=== PATIENT | male | born 1995 | race Caucasian/White ===

== ENCOUNTER 2016-08-31 21:13 | Emergency (ER) | payer OTHER ==
[~2016-08-31] VITALS: Ht 170.2 cm; Wt 68.0 kg
[~2016-08-31 21:13] MED LIST: ABIL10TA PO; ADDE15CA PO; HYDRO50TAB PO; NICOTINE PATCH TD; TRAZ50TA2 PO; ZOLO50TA PO
[2016-08-31] MEDS ORDERED: CLIN1CAP5 PO (22:09)
[2016-08-31] MEDS ORDERED: CLINDAMYCIN 150 MG CAP PO ONE (22:15)
[2016-08-31 22:17] VITALS: BP 146/60
== END 2016-08-31 22:21 | disposition home or self-care (01) ==
LOC: M ED 21:59
DX: K05.6 Periodontal disease, unspecified (principal); K08.9 Disorder of teeth and supporting structures, unspecified; F17.200 Nicotine dependence, unspecified, uncomplicated

== ENCOUNTER → 2016-11-19 | Outpatient (REF) | payer OTHER ==
[~2016-11-19] MED LIST changes: +AMOX500C PO; +CLIN150C14 PO; +DEPA500T2 PO; +IBUP-1022 PO; +SERO1TAB PO; +TYLE500T78 PO
[2016-11-19 19:04] LABS: ALBUMIN 4.2 GM/DL (3.2-5.2); ALBUMIN/GLOBULIN RATIO 1.45 (1.00-1.93); BILIRUBIN,DIRECT 0.1 MG/DL (0.0-0.2); BILIRUBIN,TOTAL 0.4 MG/DL (0.2-1.0); TOTAL PROTEIN 7.1 GM/DL (6.4-8.2)
== END ==
LOC: M LAB REF 09:35
PROVIDERS: ATTEND Psychiatry & Neurology Psychiatry
DX: Z51.81 Encounter for therapeutic drug level monitoring (principal); Z79.899 Other long term (current) drug therapy

== ENCOUNTER 2016-12-13 13:56 | Emergency (ER) | payer MEDICAID, OTHER, SELFPAY ==
[~2016-12-13] VITALS: Ht 177.8 cm; Wt 70.5 kg
[~2016-12-13 13:56] MED LIST changes: -AMOX500C PO; -DEPA500T2 PO; -IBUP-1022 PO; -SERO1TAB PO; -TYLE500T78 PO
[2016-12-13] MEDS ORDERED: DEPA500T2 PO ×3 (14:05→15:29)
[2016-12-13 15:38] VITALS: BP 120/78
== END 2016-12-13 15:39 | disposition home or self-care (01) ==
LOC: M ED 13:56
DX: Z96.0 Presence of urogenital implants (principal); K50.90 Crohn's disease, unspecified, without complications; F17.210 Nicotine dependence, cigarettes, uncomplicated; Z79.899 Other long term (current) drug therapy

== ENCOUNTER → 2016-12-19 | Outpatient (CLI) | payer MEDICAID, SELFPAY ==
[~2016-12-19] MED LIST changes: +AMOX500C PO; +DEPA500T2 PO; +IBUP-1022 PO; +SERO1TAB PO; +TYLE500T78 PO
== END ==
LOC: M OUTALCOH 12:26
PROVIDERS: ATTEND Psychiatry & Neurology Psychiatry
DX: F10.20 Alcohol dependence, uncomplicated (principal); F11.20 Opioid dependence, uncomplicated

== ENCOUNTER 2017-01-03 16:49 | Emergency (ER) | payer MEDICAID ==
[~2017-01-03] VITALS: Ht 177.8 cm; Wt 70.5 kg
[~2017-01-03 16:49] MED LIST changes: -AMOX500C PO; -IBUP-1022 PO; -SERO1TAB PO; -TYLE500T78 PO
[2017-01-03] MEDS ORDERED: SERO1TAB PO (17:11)
[2017-01-03] MEDS ORDERED: TYLE500T78 PO (17:12)
--- NOTE | 2017-01-03 17:55 | REP ---
Mandible series: Four views. History: Trauma to the chin. Findings: Four views of the mandible are presented. One of the frontal views is suspicious for a supracondylar fracture on the right with slight angulation. There is some asymmetry on oblique lateral views in the right subcondylar and condylar region. No mandibular body or omental fracture is seen. No evidence of malocclusion noted. No bony destructive lesion seen. Impression: Questionable condylar neck fracture on the right. Consider maxillofacial and mandibular CT study. Signed by Jermain Wheatley MD 01/03/2017 07:24 P
--- NOTE | 2017-01-03 18:30 | REPUSA ---
CT of the facial bones without contrast Clinical history: Pain, injury. Technique: Multiple axial CT images were obtained through the facial bones and paranasal sinuses util izing 3 mm axial slices without administration of contrast. Coronal and sagittal reconstructions were also obtained. Findings: The visualized paranasal sinuses are clear, other than a small mucus retention cyst in the inferior right maxillary sinus. The osteomeatal complexes are patent bilaterally. The nasal septum is midline. The visualized mastoid air cells are clear. The osseous structures do not demonstrate any a cute abnormalities. The superficial soft tissues are within normal limits. Impression: Unremarkable CT examination of the facial bones and paranasal sinuses.
[2017-01-03 19:12] VITALS: BP 142/72
[2017-01-03] MEDS ORDERED: AMOX500C PO (19:12)
[2017-01-03] MEDS ORDERED: IBUP-1022 PO (19:13)
== END 2017-01-03 19:19 | disposition home or self-care (01) ==
LOC: M ED 16:49
DX: S00.532A Contusion of oral cavity, initial encounter (principal); V18.9XXA Unspecified pedal cyclist injured in noncollision transport accident in traffic accident, initial encounter; Y92.410 Unspecified street and highway as the place of occurrence of the external cause; Y93.55 Activity, bike riding; Y99.8 Other external cause status; Z79.899 Other long term (current) drug therapy

== ENCOUNTER 2017-01-08 15:38 | Emergency (ER) | payer MEDICAID ==
[~2017-01-08] VITALS: Ht 177.8 cm; Wt 70.5 kg
[~2017-01-08 15:38] MED LIST changes: +AMOX500C PO; +IBUP-1022 PO; +SERO1TAB PO; +TYLE500T78 PO
[2017-01-08] MEDS ORDERED: AMOX500C PO (17:15)
[2017-01-08] MEDS ORDERED: ACETAMINOPHEN 325 MG TAB PO ONE (17:15)
[2017-01-08] MEDS ORDERED: AMOXICILLIN 500 MG CAP PO ONE (17:15)
[2017-01-08 17:27] VITALS: BP 143/77
== END 2017-01-08 17:28 | disposition home or self-care (01) ==
LOC: M ED 15:38
DX: K04.7 Periapical abscess without sinus (principal); F31.9 Bipolar disorder, unspecified; K50.90 Crohn's disease, unspecified, without complications; F17.210 Nicotine dependence, cigarettes, uncomplicated; Z79.2 Long term (current) use of antibiotics; Z79.899 Other long term (current) drug therapy

== ENCOUNTER 2017-03-22 08:42 | Emergency (ER) | payer OTHER, MEDICAID ==
[2017-03-22 10:20] LABS: METHADONE URINE NEGATIVE (NEGATIVE)
== END 2017-03-22 10:30 | disposition home or self-care (01) ==
LOC: M ED 08:42
DX: R07.9 Chest pain, unspecified (principal); M54.2 Cervicalgia; V48.5XXA Car driver injured in noncollision transport accident in traffic accident, initial encounter; Y92.410 Unspecified street and highway as the place of occurrence of the external cause; Y93.89 Activity, other specified; R56.9 Unspecified convulsions; F31.9 Bipolar disorder, unspecified; K50.90 Crohn's disease, unspecified, without complications; F17.200 Nicotine dependence, unspecified, uncomplicated; Z79.899 Other long term (current) drug therapy
CPT/HCPCS: 71111

== ENCOUNTER 2017-06-27 09:08 | Outpatient (RCR) | payer MEDICAID | END 2017-07-21 | LOC: M OUTALCOH 09:08 | DX: F10.20 Alcohol dependence, uncomplicated (principal); F12.20 Cannabis dependence, uncomplicated; Z72.0 Tobacco use ==

== ENCOUNTER → 2017-09-03 | Outpatient (REF) | payer MEDICAID ==
[2017-09-03 13:14] LABS: ESTIMATED AVERAGE GLUCOSE 97 MG/DL (60-110)
== END ==
LOC: M LAB REF 11:50
DX: Z13.9 Encounter for screening, unspecified (principal)

== ENCOUNTER → 2018-04-06 | Outpatient (REF) | payer MEDICAID ==
[2018-04-06 19:36] LABS: BASO % 0.2 % (0.0-1.0); EOS # 0.1 10^3/uL (0.0-0.50); EOS % 0.6 % (0.0-3.0); HEMATOCRIT 40.7 % (42.0-52.0); HEMOGLOBIN 13.7 g/dl (13.5-17.5); LYMPH # 1.9 10^3/uL (1.5-6.5); LYMPH % 23.6 % (24.0-44.0); MEAN CORPUSCULAR HEMOGLOBIN 28.5 pg (27.0-33.0); MEAN CORPUSCULAR HGB CONC 33.7 g/dl (32.0-36.5); MEAN CORPUSCULAR VOLUME 84.8 fl (80.0-96.0); MONO # 0.6 10^3/uL (0.0-0.8); MONO % 7.7 % (0.0-5.0); NEUTROPHILS # 5.6 10^3/uL (1.8-7.7); NEUTROPHILS % 67.7 % (36.0-66.0); PLATELET COUNT, AUTOMATED 248 10^3/uL (150-450); WHITE BLOOD COUNT 8.2 10^3/uL (4.0-10.0)
[2018-04-06 20:05] LABS: ALBUMIN 4.7 GM/DL (3.2-5.2); ALT/SGPT 20 U/L (12-78); BILIRUBIN,TOTAL 1.3 MG/DL (0.2-1.0); BLOOD UREA NITROGEN 10 MG/DL (7-18); CALCIUM LEVEL 9.2 MG/DL (8.5-10.1); CARBON DIOXIDE LEVEL 28 MEQ/L (21-32); CHLORIDE LEVEL 106 MEQ/L (98-107); CHOLESTEROL LEVEL 152 MG/DL (<200); CHOLESTEROL RISK RATIO 2.082 (<5); CREATININE FOR GFR 0.92 MG/DL (0.70-1.30); GLOMERULAR FILTRATION RATE > 60.0 (>60); GLUCOSE, FASTING 94 MG/DL (70-100); HDL CHOLESTEROL 73 MG/DL (>40); LDL CHOLESTEROL 69 MG/DL (<100); NON-HDL-C 79 MG/DL; SODIUM LEVEL 142 MEQ/L (136-145); THYROID STIMULATING HORMONE 0.618 uIU/ML (0.358-3.740); TOTAL 25(OH) VITAMIN D 25.3 NG/ML (30.0-100.0); TOTAL PROTEIN 7.4 GM/DL (6.4-8.2); TRIGLYCERIDES LEVEL 50 MG/DL (<150)
== END ==
LOC: M LAB REF 18:54
PROVIDERS: ATTEND Nurse Practitioner Family
DX: Z13.9 Encounter for screening, unspecified (principal); R03.0 Elevated blood-pressure reading, without diagnosis of hypertension

== ENCOUNTER 2018-04-18 12:59 | Emergency (ER) | payer MEDICAID, OTHER, SELFPAY ==
[~2018-04-18] VITALS: Ht 170.2 cm; Wt 68.2 kg
[2018-04-18 13:11] VITALS: BP 147/70
[2018-04-18] MEDS ORDERED: CLOTR1CR TOP (14:07)
== END 2018-04-18 14:13 | disposition home or self-care (01) ==
LOC: M ED 12:59
DX: B35.3 Tinea pedis (principal); K50.90 Crohn's disease, unspecified, without complications; F31.9 Bipolar disorder, unspecified; F17.210 Nicotine dependence, cigarettes, uncomplicated

== ENCOUNTER → 2018-04-20 | Outpatient (CLI) | payer MEDICAID ==
[~2018-04-20] MED LIST changes: +CLOTR1CR TOP
== END ==
LOC: M OUTALCOH 07:48
PROVIDERS: ATTEND Psychiatry & Neurology Psychiatry
DX: F10.20 Alcohol dependence, uncomplicated (principal)

== ENCOUNTER 2018-05-05 10:00 | Outpatient (RCR) | payer MEDICAID | END 2018-05-21 | LOC: M OUTALCOH 10:00 | PROVIDERS: ATTEND Psychiatry & Neurology Psychiatry | DX: F10.20 Alcohol dependence, uncomplicated (principal); F12.20 Cannabis dependence, uncomplicated; Z72.0 Tobacco use ==

== ENCOUNTER → 2018-07-17 | Outpatient (CLI) | payer MEDICAID, OTHER, SELFPAY ==
[~2018-07-17] MED LIST changes: +CLOT1CRE27 TOP; -CLOTR1CR TOP; +E-Z-GAS II EFFERVESCENT PACKET (SODIUM BICARB./CITRIC ACID/SIMETHICONE) As Ordered ONE; +E-Z-HD 98% w/w 340GM SUSP BTL As Ordered ONE; +E-Z-PAQUE 96% w/w SUSP 176GM BTL As Ordered ONE; +HYDR-4274 PO; -HYDRO50TAB PO
--- NOTE | 2018-07-17 17:09 | REP ---
Examination Requested: Upper G.I. Series With small bowel follow through Reason For Exam: Crohn disease Upper GI Air Contrast The procedure was performed by LISANDRO Padilla, under the direct supervision of Dr. Marin. The images were reviewed with Tomas. The tester rocket engine film shows the intestinal gas pattern to be normal. Liquid barium and gas producing crystals were given in the erect position as well as liquid barium in the prone position in order to perform a double contrast upper GI examination. The oral and pharyngeal stages of deglutition were unremarkable. Esophageal transport is efficient and there is no esophagitis, stricture, or mucosal ring noted. There there is no evidence of a hiatal hernia, and no gastroesophageal reflux was appreciated. The stomach jimenez are normally outlined. The rugal folds are smooth and regular. There is no gastritis, neoplasm, ulcer disease noted. The duodenal jimenez are normally outlined. The mucosal folds are smooth and regular. There is no duodenitis, pancreatitis, peptic ulcer disease, or neoplasm noted. The visualized portion of the proximal small bowel appears normal in course and caliber. The barium column was followed through the small bowel to the level of the terminal ileum. Small bowel transit time is approximately 60 minutes. During fluoroscopy, Gentle palpation shows all loops to be freely mobile and pliable. There are no fixed dilated loops. The small bowel mucosal pattern is normal in course and caliber. There is no transition to suggest a partial small-bowel obstruction. Spot filming of the terminal ileum shows it to be unremarkable. Impression; Unremarkable upper GI and small-bowel follow-through 1.3 minutes of fluoroscopy time was utilized for this procedure. Reviewed by LISANDRO Garnica 07/17/2018 04:22 P Electronically Signed by Haile Marin MD 07/17/2018 05:01 P
== END ==
LOC: M RAD 10:58
PROVIDERS: ATTEND Internal Medicine Gastroenterology
DX: Z87.19 Personal history of other diseases of the digestive system (principal)

== ENCOUNTER 2018-10-02 21:59 | Emergency (ER) | payer MEDICAID, SELFPAY ==
[~2018-10-02] VITALS: Ht 175.3 cm; Wt 68.2 kg
[~2018-10-02 21:59] MED LIST changes: -E-Z-GAS II EFFERVESCENT PACKET (SODIUM BICARB./CITRIC ACID/SIMETHICONE) As Ordered ONE; -E-Z-HD 98% w/w 340GM SUSP BTL As Ordered ONE; -E-Z-PAQUE 96% w/w SUSP 176GM BTL As Ordered ONE
[2018-10-02 22:00] VITALS: BP 151/69
== END 2018-10-03 00:16 | disposition left against medical advice (07) ==
LOC: M ED 21:59
DX: Z53.29 Procedure and treatment not carried out because of patient's decision for other reasons (principal)

== ENCOUNTER → 2018-10-05 | Outpatient (REF) | payer MEDICAID, SELFPAY ==
[2018-10-05 13:53] LABS: APPEARANCE, URINE CLEAR (CLEAR); BACTERIA, URINE AUTO NEGATIVE (NEGATIVE); BILIRUBIN, URINE AUTO NEGATIVE (NEGATIVE); BLOOD, URINE BLOOD NEGATIVE (NEGATIVE); COLOR, URINE YELLOW (YELLOW); GLUCOSE, URINE (UA) AUTO NEGATIVE (NEGATIVE); KETONE, URINE AUTO NEGATIVE (NEGATIVE); LEUKOCYTE ESTERASE, URINE AUTO NEGATIVE (NEGATIVE); NITRITE, URINE AUTO NEGATIVE (NEGATIVE); PROTEIN, URINE AUTO NEGATIVE (NEGATIVE); RBC, URINE AUTO 0 /HPF (0-3); SPECIFIC GRAVITY URINE AUTO 1.011 (1.002-1.035); SQUAMOUS EPITHELIAL CELL UR AU 0 /HPF (0-6); UROBILINOGEN, URINE AUTO 0.2 mg/dL (0.0-2.0); WBC, URINE AUTO 0 /HPF (0-3)
[2018-10-05 15:12] LABS: CHLAMYDIA DNA AMPLIFICATION NEGATIVE (NEGATIVE); GC DNA AMPLIFICATION NEGATIVE (NEGATIVE)
[2018-10-05 18:20] LABS: BASO % 0.6 % (0.0-1.0); EOS # 0.2 10^3/uL (0.0-0.50); EOS % 4.3 % (0.0-3.0); HEMATOCRIT 41.8 % (42.0-52.0); HEMOGLOBIN 13.8 g/dl (13.5-17.5); LYMPH # 1.5 10^3/uL (1.5-6.5); LYMPH % 28.2 % (24.0-44.0); MEAN CORPUSCULAR HEMOGLOBIN 29.4 pg (27.0-33.0); MEAN CORPUSCULAR VOLUME 89.1 fl (80.0-96.0); MONO # 0.4 10^3/uL (0.0-0.8); NEUTROPHILS % 58.7 % (36.0-66.0); PLATELET COUNT, AUTOMATED 233 10^3/uL (150-450); RED BLOOD COUNT 4.69 10^6/uL (4.30-6.10); WHITE BLOOD COUNT 5.2 10^3/uL (4.0-10.0)
[2018-10-05 18:22] LABS: ALT/SGPT 22 U/L (12-78); BILIRUBIN,TOTAL 0.5 MG/DL (0.2-1.0); BLOOD UREA NITROGEN 11 MG/DL (7-18); CALCIUM LEVEL 8.8 MG/DL (8.5-10.1); CARBON DIOXIDE LEVEL 29 MEQ/L (21-32); CHLORIDE LEVEL 106 MEQ/L (98-107); CHOLESTEROL LEVEL 146 MG/DL (<200); CHOLESTEROL RISK RATIO 2.754 (<5); CREATININE FOR GFR 0.95 MG/DL (0.70-1.30); FREE T4 0.85 NG/DL (0.76-1.46); GLOMERULAR FILTRATION RATE > 60.0 (>60); GLUCOSE, FASTING 144 MG/DL (70-100); HDL CHOLESTEROL 53 MG/DL (>40); LDL CHOLESTEROL 81 MG/DL (<100); NON-HDL-C 93 MG/DL; POTASSIUM SERUM 4.1 MEQ/L (3.5-5.1); SODIUM LEVEL 138 MEQ/L (136-145); THYROID STIMULATING HORMONE 0.495 uIU/ML (0.358-3.740); TRIGLYCERIDES LEVEL 62 MG/DL (<150)
[2018-10-05 18:26] LABS: TOTAL 25(OH) VITAMIN D 22.2 NG/ML (30.0-100.0)
[2018-10-05 18:30] LABS: HEMOGLOBIN A1c 5.2 %
[2018-10-05 19:06] LABS: HEPATITIS C VIRUS ABY INDEX 0.1 INDEX (<0.8); HIV 1&2 SCREEN CENTAUR NEGATIVE (NEGATIVE)
[2018-10-07 10:39] LABS: HEPATITIS B SURFACE ANTIGEN NEGATIVE (NEGATIVE)
[2018-10-07 11:07] LABS: HEPATITIS B CORE ANTIBODY IGM NEGATIVE (NEGATIVE)
[2018-10-07 11:09] LABS: HEPATITIS A ANTIBODY IGM NEGATIVE (NEGATIVE)
[2018-10-08 00:08] LABS: HSV IgM TYPES 1&2 1.79 Ratio (0.00-0.90); Lyme Disease IgG Ab 18 kDa Ban Absent (.); Lyme Disease IgG Ab 23 kDa Ban Present (.); Lyme Disease IgG Ab 28 kDa Ban Absent (.); Lyme Disease IgG Ab 30 kDa Ban Absent (.); Lyme Disease IgG Ab 39 kDa Ban Absent (.); Lyme Disease IgG Ab 41 kDa Ban Present (.); Lyme Disease IgG Ab 45 kDa Ban Absent (.); Lyme Disease IgG Ab 58 kDa Ban Absent (.); Lyme Disease IgG Ab 66 kDa Ban Absent (.); Lyme Disease IgG Ab 93 kDa Ban Absent (.); Lyme Disease IgG West Blot Int Negative (.); Lyme Disease IgM Ab 23 kDa Ban Present (.); Lyme Disease IgM Ab 39 kDa Ban Present (.); Lyme Disease IgM Ab 41 kDa Ban Present (.); Lyme Disease IgM Ab Quantitati 5.35 index (0.00-0.79); Lyme Disease IgM West Blot Int Positive (.)
== END ==
LOC: M LAB REF 12:37
PROVIDERS: ATTEND Family Medicine
DX: Z11.3 Encounter for screening for infections with a predominantly sexual mode of transmission (principal); Z13.228 Encounter for screening for other metabolic disorders

== ENCOUNTER → 2018-11-19 | Outpatient (CLI) | payer MEDICAID | LOC: M OUTALCOH 07:40 | PROVIDERS: ATTEND Psychiatry & Neurology Psychiatry | DX: F10.20 Alcohol dependence, uncomplicated (principal); F12.20 Cannabis dependence, uncomplicated ==

== ENCOUNTER 2018-12-07 08:45 | Outpatient (RCR) | payer MEDICAID | END 2018-12-21 | LOC: M OUTALCOH 08:45 | PROVIDERS: ATTEND Psychiatry & Neurology Psychiatry | DX: F10.20 Alcohol dependence, uncomplicated (principal); F12.20 Cannabis dependence, uncomplicated; F17.200 Nicotine dependence, unspecified, uncomplicated ==

== ENCOUNTER 2022-09-22 17:47 | Emergency (ER) | payer MEDICAID, OTHER ==
[~2022-09-22] VITALS: Ht 177.8 cm; Wt 72.7 kg
[~2022-09-22 17:47] MED LIST changes: -CLIN150C14 PO; +CLIN150C17 PO
[2022-09-22 18:19] LABS: HEMATOCRIT 43.1 % (42.0-52.0); HEMOGLOBIN 14.5 g/dl (13.5-17.5); MEAN CORPUSCULAR HGB CONC 33.6 g/dl (32.0-36.5); MEAN CORPUSCULAR VOLUME 86.2 fl (80.0-96.0); PLATELET COUNT, AUTOMATED 300 10^3/uL (150-450); WHITE BLOOD COUNT 8.3 10^3/uL (4.0-10.0)
[2022-09-22 18:43] LABS: AMPHETAMINES LEVEL URINE NEGATIVE (NEGATIVE); BARBITURATES URINE NEGATIVE (NEGATIVE); BENZODIAZEPINES URINE NEGATIVE (NEGATIVE); COCAINE METABOLITE URINE NEGATIVE (NEGATIVE); METHADONE URINE NEGATIVE (NEGATIVE); OPIATES URINE NEGATIVE (NEGATIVE); PHENCYCLIDINE URINE NEGATIVE (NEGATIVE)
[2022-09-22 18:45] LABS: ETHYL ALCOHOL (ETHANOL) 0.175 % (0.000-0.010)
[2022-09-22 18:46] LABS: ACETAMINOPHEN LEVEL < 2.0 UG/ML (10.0-20.0)
[2022-09-22 18:47] LABS: ALBUMIN 4.4 G/DL (3.2-5.2); ALKALINE PHOSPHATASE 97 U/L (46-116); ALT/SGPT 29 U/L (7.0-40); AST/SGOT 31 U/L (<34); BILIRUBIN,DIRECT < 0.1 MG/DL (<0.4); BILIRUBIN,TOTAL 0.2 MG/DL (0.3-1.2); BLOOD UREA NITROGEN 14 MG/DL (9-23); CALCIUM LEVEL 10.2 MG/DL (8.5-10.1); CARBON DIOXIDE LEVEL 19 MMOL/L (20-31); CHLORIDE LEVEL 109 MMOL/L (98-107); CREATININE FOR GFR 1.19 MG/DL (0.70-1.30); GLOMERULAR FILTRATION RATE > 60.0 (>60); GLUCOSE, FASTING 152 MG/DL (60-100); POTASSIUM SERUM 3.7 MMOL/L (3.5-5.1); SALICYLATE LEVEL < 3.0 MG/DL (<30); SODIUM LEVEL 143 MMOL/L (136-145); TOTAL PROTEIN 7.2 G/DL (5.7-8.2)
[2022-09-22 18:48] LABS: CANNABINOIDS URINE POSITIVE (NEGATIVE)
[2022-09-22 18:49] LABS: THYROID STIMULATING HORMONE 0.547 uIU/ML (0.55-4.78)
[2022-09-23 02:21] VITALS: BP 139/82; TEMP 98.2; O2SAT 95
== END 2022-09-23 02:23 | disposition home or self-care (01) ==
LOC: M ED 17:47
DX: Z04.6 Encounter for general psychiatric examination, requested by authority (principal); K50.90 Crohn's disease, unspecified, without complications; F31.9 Bipolar disorder, unspecified

== ENCOUNTER 2023-08-04 09:11 | Emergency (ER) | payer OTHER ==
[~2023-08-04] VITALS: Ht 177.8 cm; Wt 83.8 kg
[2023-08-04] MEDS ORDERED: KETO10TAB PO (09:36)
[2023-08-04] MEDS ORDERED: PERI0.126 PO (09:36)
[2023-08-04] MEDS ORDERED: AMOX875T2 PO (09:36)
[2023-08-04] MEDS: AUGMENTIN 875 MG TAB PO ONE (09:43)
[2023-08-04 10:14] VITALS: BP 131/75; TEMP 97.9; O2SAT 97
== END 2023-08-04 10:20 | disposition home or self-care (01) ==
LOC: M ED 09:11
DX: K02.9 Dental caries, unspecified (principal); Z79.2 Long term (current) use of antibiotics; Z79.899 Other long term (current) drug therapy

== ENCOUNTER 2024-06-24 16:42 | Emergency (ER) | payer MEDICAID, OTHER ==
[~2024-06-24] VITALS: Ht 172.7 cm; Wt 81.0 kg
[~2024-06-24 16:42] MED LIST changes: +AMOX875T2 PO; +KETO10TAB PO; +PERI0.126 PO
[2024-06-24 17:19] LABS: HEMATOCRIT 43.4 % (42.0-52.0); MEAN CORPUSCULAR HEMOGLOBIN 29.2 pg (27.0-33.0); MEAN CORPUSCULAR HGB CONC 34.6 g/dl (32.0-36.5); MEAN CORPUSCULAR VOLUME 84.6 fl (80.0-96.0); PLATELET COUNT, AUTOMATED 258 10^3/uL (150-450); RED BLOOD COUNT 5.13 10^6/uL (4.30-6.10); WHITE BLOOD COUNT 6.3 10^3/uL (4.0-10.0)
[2024-06-24 17:33] LABS: BLOOD UREA NITROGEN 10 MG/DL (9-23); CALCIUM LEVEL 9.1 MG/DL (8.5-10.1); CARBON DIOXIDE LEVEL 26 MMOL/L (20-31); CHLORIDE LEVEL 107 MMOL/L (98-107); CREATININE FOR GFR 0.92 MG/DL (0.70-1.30); GLOMERULAR FILTRATION RATE > 60.0 (>60); GLUCOSE, FASTING 119 MG/DL (60-100); POTASSIUM SERUM 4.2 MMOL/L (3.5-5.1); SODIUM LEVEL 140 MMOL/L (136-145)
[2024-06-24 17:34] LABS: CK-MB VALUE MASS < 1.0 NG/ML (<3.6)
[2024-06-24 17:35] LABS: CPK CREATINE PHOSPHOKINASE 150 U/L (46-171); MB/CK RELATIVE INDEX 0.66 (< OR =4)
[2024-06-25] MEDS: GASTROGRAFIN SOLUTION 30ML PO SCH (02:18)
[2024-06-25] MEDS ORDERED: ISOVUE-370 76% 100ML VIAL As Ordered ONE (03:32)
[2024-06-25] MEDS: NS 500 ML IV ONE (05:59)
[2024-06-25 06:54] LABS: KETONE, URINE AUTO RFX 1+ mg/dL (NEGATIVE); LEUKOCYTE ESTERASE UR AUTO RFX NEGATIVE (NEGATIVE); NITRITE, URINE AUTO RFX NEGATIVE (NEGATIVE); RBC, URINE AUTO RFX 1 /HPF (0-3); SQUAM EPITHELIAL CELL UR AURFX 0 /HPF (0-6); WBC, URINE AUTO RFX 0 /HPF (0-3)
[2024-06-25 07:13] VITALS: BP 136/80; TEMP 97.6; O2SAT 97
== END 2024-06-25 07:16 | disposition home or self-care (01) ==
LOC: M ED 16:42
DX: R10.9 Unspecified abdominal pain (principal); K50.90 Crohn's disease, unspecified, without complications; R00.0 Tachycardia, unspecified; F31.9 Bipolar disorder, unspecified; F17.210 Nicotine dependence, cigarettes, uncomplicated; Z79.2 Long term (current) use of antibiotics; Z79.899 Other long term (current) drug therapy
CPT/HCPCS: 36415; 74177; 80048; 81001; 82550; 82553; 84484; 85027; 86850; 86900; 86901; 93005; 99284; Q9963; Q9967